=== PATIENT | male | born 1975 | race Caucasian/White ===

== ENCOUNTER 2016-09-13 12:50 | Observation (INO) | payer OTHER ==
[~2016-09-13] VITALS: Ht 182.9 cm; Wt 88.8 kg
[2016-09-13] MEDS: 0.9% Sodium Chloride 1,000 ML IV SCH ×3 (06:00→23:59)
[~2016-09-13 12:50] MED LIST: Methohexital 10 mg/mL 50 mL Inj IV ONE
[2016-09-13 14:20] VITALS: BP 113/78; PULSE 76; RESP 16; O2SAT 96
[2016-09-13] MEDS ORDERED: Polyethylene Glycol (PEG) 17 Gm Powder PO PRN (14:45)
[2016-09-13] MEDS ORDERED: Alum-Mag Hydrox-Simeth 30 mL Suspension PO PRN (14:45)
[2016-09-13] MEDS ORDERED: Ondansetron 2 mg/mL 2 mL Inj IVPUSH PRN ×2 (14:45→17:30)
[2016-09-13 14:48] VITALS: PULSE 82
[2016-09-13 16:08] LABS: BASOPHILS % (AUTO) 0.8 % (0-3); EOSINOPHILS % (AUTO) 1.9 % (0-5); MONOCYTES % (AUTO) 9.4 % (4-12); Mean Corpuscular Volume 81.1 fL (81-100); NEUTROPHILS % (AUTO) 61.9 % (40-74); Platelet Count 224 bil/L (150-400)
[2016-09-13] MEDS: Lactated Ringer's 1,000 ML IV SCH ×2 (16:15→23:59)
[2016-09-13 16:22] VITALS: BP 112/72; PULSE 74; RESP 18; O2SAT 97
[2016-09-13 16:49] LABS: TROPONIN T < 0.010 ug/L (0.0-0.011)
[2016-09-13 17:06] LABS: COLOR,URINE YELLOW (YELLOW)
[2016-09-13] MEDS ORDERED: Methohexital 10 mg/mL 50 mL Inj ONE (17:06)
[2016-09-13 17:07] LABS: APPEARANCE,URINE CLEAR (CLEAR,HAZY); OCCULT BLOOD,URINE NEGATIVE (NEGATIVE); UROBILINOGEN,URINE NORMAL (NORMAL)
[2016-09-13] MEDS ORDERED: 0.9% Sodium Chloride 1,000 ML IV ONE (17:30)
--- NOTE | 2016-09-13 18:06 | PCM.HPMED ---
Subjective Date of Service Sep 13, 2016 Primary Provider: Admitting Physician: Marshal Magana MD Primary Care Physician: Lm Attending Physician: Marshal Magana MD Chief Complaint: Chest pain History of Present Illness: Patient is a 40-year-old male without past medical history who was transferred to [facility] from [facility] due to acute onset of atrial fibrillation. Patient is a healthy gentleman with no past medical history of cardiac problems. Patient states that last night around 7 PM while at work he developed nausea, 2 episodes of profuse diarrhea, heart palpitations, chest pressure, and lightheadedness. He works at [employer] in [employer] so she went to nursing station to be evaluated. The EKG was performed which revealed antral fibrillation. He was sent to [facility] and eventual transfer to [facility]. Patient is a current smoker, smokes about 1-3 cigarettes per week for about 20 years, he has maybe 1-2 beers per month and he denies the use of illicit drugs. He does not exercises on a daily basis. He has a family history of coronary artery disease in his father and grandfather. At the moment patient denies any chest pain, but admits to having mild chest pressure, he denies irregular heart palpitations, diaphoresis, nausea. On admission patient's white blood count was 8.8, hemoglobin 15.7, hematocrit 42.9, platelets 224. Sodium 139, potassium 4.5, chloride 105, carbon dioxide 20 , BUN 15, creatinine 0.91, glucose 100. Troponin less then 0.01, TSH and free T4 within normal limits. Review of Systems: Comprehensive review of systems has been conducted with the patient and found to be negative except what is mentioned in the history of present illness. Allergies Coded Allergies: No Known Allergies (Unverified , 09/13/16) Home Medications Occasionally ibuprofen PMH None Surgical History Appendectomy Back surgery Family History Patient is and lives with the family Social History Hx Alcohol Use: Yes (on occasion) Alcoholic Drinks Per Day: less than one a week Hx Substance Use: No Smoking Status: Light Tobacco Smoker Living Arrangement: with Family Exam Vital Signs Vital Sign - Last Date Time Temp Pulse Resp B/P Pulse Ox O2 Delivery O2 Flow Rate FiO2 09/13/16 16:22 36.9 74 18 112/72 97 Room Air Exam General: Pleasant gentleman in no acute distress, well-developed, well-nourished , appropriately interactive HEENT: Normocephalic, atraumatic. External ears without defect. Anicteric sclerae, moist conjunctivae, and no lid lag. Oropharynx free of erythema and cobble stoning with moist mucosa. Neck: Supple. No lymphadenopathy or thyromegaly. Cardiovascular: Irregularly irregular, with no murmurs, rubs, or gallops appreciated Pulmonary: Clear to auscultation bilaterally with no crackles, wheezes, or rhonchi. Normal respiratory effort with no use of accessory muscles. Abdomen: Bowel tones present. Soft, nontender, nondistended. No hepatosplenomegaly or masses appreciated. Extremities: No clubbing, cyanosis, edema, or lymphadenopathy appreciated. Skin: Normal temperature, turgor, and texture; no rash, ulcers, or subcutaneous nodules appreciated. Neurological: Cranial nerves grossly intact. Psychiatric: Normal mood and affect. Alert and oriented to person, place, and time. Lab and Diagnostics Result Diagram: 09/13/16 1555 09/13/16 1555 Assessment & Plan Tomasz Duke is a 40-year-old male transferred to [facility] from [facility] and admitted for acute onset of atrial fibrillation. 1. New onset Atrial fibrillation, present on admission. Active - Cardiology consulted - Synchronized cardioversion to restore sinus rhythm this afternoon - lovenox for now ,Eliquis on discharge for 1 months - EKG to be performed as an outpatient within 2 weeks of discharge - Complete ECHO as an outpatient - Anticipate discharge tomorrow if patient stable Disposition: obsevation Pain Evaluation: Adequate Pain Control VTE Prophylaxis: Sub-Q Enoxaparin Resuscitation Status: CPR: Attempt Resuscitation Attending Statement The patient was seen and examined together with Dr. Barba on 09/13/16 and I agree with the history, exam and plan as outlined in the note above. Arabella Barba DO Sep 13, 2016 18:06 Marshal Magana MD Sep 13, 2016 21:56
--- NOTE | 2016-09-13 18:34 | NUR ---
Admit to PCC/Cardioversion Pt admitted to PCC at 14:15. Report received from [facility]. Vitals stable, ECG obtained, admit completed, Pt and family oriented to floor and Pt educated on Afib. Pt has HX of MRSA, Dr notified, swab sent. Cardiac: Pt reports chest pressure 09/08, Dr aware. Tele: Afib 70-80. Leading up to ED visit pt reports, "I had diarrhea twice last night at work. On the way to the nurse's office I felt pressure in my chest going up my neck, I felt nausea and tingling all over. I felt my heart beating very hard. At the nurse's office they got an EKG and faxed it to the DR. The Dr was called and he told me to go to the hospital." Pt cardioverted at 15:20 back into SR 80s. Pt reports no more CP. Resting comfortably following procedure. Pt was provided ed materials on Afib, Cardioversion, H/H diet. Resp: Pt denies SOB, SPo2 96% on RA. GI/: Pt denies n/v. Pt reports that he had diarrhea twice last night. Neuro: A&Ox3, ARREDONDO.
[2016-09-13 19:21] VITALS: BP 109/77; PULSE 79; RESP 16; O2SAT 96
[2016-09-13] MEDS: Sodium Chloride LOK Flush 10 mL Syringe IVFLUSH SCH (23:59)
[2016-09-14 00:05] VITALS: BP 126/82; PULSE 83; RESP 16; O2SAT 96
[2016-09-14] MEDS ORDERED: LORazepam 0.5 mg Tablet PO PRN (00:20)
--- NOTE | 2016-09-14 01:17 | NUR ---
Chest Pain: Pt. complaining of sudden 3/10 chest pressure at 0000 which radiates up neck with deep breathing. Pt. diaphoretic, denies nausea, denies anxiety. VSS. STAT EKG performed indicating sinus rhythm, no ectopy observed. Physician notified of findings, orders received for PRN Morphine. 1mg IV Morphine administered, very shortly after morphine administration, pt. states that chest pressure is already starting to improve. 30 minutes after morphine administration, pt. rates chest pressure at 2/10 and refuses further medication at this time. Will continue to monitor.
[2016-09-14 03:13] LABS: Mean Corpuscular Hemoglobin 29.1 pg (27.0-35.0); Mean Corpuscular Volume 80.2 fL (81-100)
[2016-09-14 03:50] VITALS: BP 108/68; PULSE 75; RESP 18; O2SAT 97
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
[2016-09-14 06:04] VITALS: PULSE 80
[2016-09-14 07:28] VITALS: BP 106/68; PULSE 77; RESP 16; O2SAT 93
--- NOTE | 2016-09-14 07:57 | OP ---
[address] [address] OPERATIVE REPORT PATIENT: BETTIE CARRILLO : 1975 MR#: [id number] ADMIT: 09/13/2016 JOB ID: [id number] DATE OF SURGERY: 09/13/2016 SURGEON: Lasha Ocasio MD, [facility] PREOPERATIVE DIAGNOSIS(ES): Atrial fibrillation. POSTOPERATIVE DIAGNOSIS(ES): Atrial fibrillation successfully cardioverted to sinus rhythm. PROCEDURE PERFORMED: Direct current synchronized countershock cardioversion of atrial fibrillation to sinus rhythm. INDICATIONS: The patient is a 40-year-old male with new onset atrial fibrillation within the last 18 hours. He has been symptomatic. He wishes to proceed with cardioversion to restore sinus rhythm. TECHNIQUE: After informed consent was obtained, and in the n.p.o. state, at that time, the patient was premedicated with Versed 1 mg IV followed by Brevital 30 mg IV push which produced fairly prompt and excellent anesthesia with maintenance of spontaneous respirations. A single 150 joule direct current synchronized biphasic countershock was applied via anterior and posterior patches with immediate conversion to sinus rhythm. The patient tolerated the procedure well. There were no complications. FINDINGS: 1. Successful cardioversion using a 150 joule biphasic shock. 2. Excellent anesthesia using Versed 1 mg followed by Brevital 30 mg IV. 3. Post cardioversion rhythm appears to be sinus rhythm at a rate of around 65-70 BPM. DISCUSSION AND RECOMMENDATION: Patient should be observed overnight. The EKG will be obtained in the morning. He can be discharged at that point, on Eliquis for 1 month. He should have an outpatient echocardiogram sometime in the next month and should follow up either in my office or with his primary care provider in 1-2 weeks with an ECG. He is to follow up with me if he has any recurrent atrial fibrillation or abnormality on his echocardiogram.
[2016-09-14] MEDS: Sodium Chloride LOK Flush 10 mL Syringe IVFLUSH SCH (08:30)
--- NOTE | 2016-09-14 09:08 | PCM.DIMED ---
Discharge Instructions Date of Service Sep 14, 2016 Dates of Hospitalization Sep 13, 2016 at 14:32 Discharge Diagnosis Discharge Diagnosis New onset Afib status post cardioversion and in sinus rythm now Diet No restrictions Activity No restrictions Call your provider Fever or Chills, Shortness of breath, Bleeding, Chest pain, Vomitting, Excessive diarrhea, Weakness (unilateral) Patient Instructions You were hospitalized due to new-onset atrial fibrillation. You underwent successful cardioversion. Please continue eliquis( blood thinner ) for 1 month. Please continue aspirin 81 mg by mouth daily after 1 month. Please follow-up with PCP in 1-2 weeks and get EKG and echocardiogram. Follow-up plan Follow-up with PCP in 1-2 weeks. Follow-up with PCP in: 1 week Marshal Magana MD Sep 14, 2016 09:08
[2016-09-14] MEDS ORDERED: APIX5TAB PO (09:10)
--- NOTE | 2016-09-14 10:03 | NUR ---
Social Work- Brief Note/ Readiness for Discharge Data: EMR reviewed. Pt is a 40 year old male admitted 09/13/16 for AFIB per H&P. Pt is a transfer from [facility]. Pt's insurance is [facility]. [facility] Pt resides at home with his where he remains independent at base. Pt has no listed DPOA. Pt to receive Echo as an outpatient. Pt to discharge home with via POV. No anticipated discharge needs. SW will continue to follow if needs arise. Assessment: Pt who is independent at base. Plan: Pt to discharge home with via POV. No anticipated discharge needs. SW will continue to follow if needs arise. JANESSA Sandra
--- NOTE | 2016-09-14 10:20 | NUR ---
Discharge Pt discharged home today at 10:20. Pt off unit via ambulation with all of his belongings in the company of his father and the nurse to a private vehicle. Pt sent home with prescription, follow up instructions, and education materials on meds, HH diet, and cardioversion. Pt given a note for work. Pt voices understanding of instructions.
--- NOTE | 2016-09-14 11:01 | PCM.DC.MED ---
Discharge Summary Date of Service Sep 14, 2016 Dates of Hospitalization Date of Hospital Admission Sep 13, 2016 at 14:32 Date of Discharge: Sep 14, 2016 Providers: Admitting Physician: Marshal Magana MD [facility]ending Physician: Marshal Magana MD Diagnosis at Time of Discharge Diagnosis at Time of Discharge New onset Afib status post cardioversion and in sinus rythm now Consultations cardiology Dr Ocasio Procedures Invasive Procedures cardioversion DATE OF SURGERY: 09/13/2016 SURGEON: Lasha Ocasio MD, [facility] PREOPERATIVE DIAGNOSIS(ES): Atrial fibrillation. POSTOPERATIVE DIAGNOSIS(ES): Atrial fibrillation successfully cardioverted to sinus rhythm. PROCEDURE PERFORMED: Direct current synchronized countershock cardioversion of atrial fibrillation to sinus rhythm. INDICATIONS: The patient is a 40-year-old male with new onset atrial fibrillation within the last 18 hours. He has been symptomatic. He wishes to proceed with cardioversion to restore sinus rhythm. TECHNIQUE: After informed consent was obtained, and in the n.p.o. state, at that time, the patient was premedicated with Versed 1 mg IV followed by Brevital 30 mg IV push which produced fairly prompt and excellent anesthesia with maintenance of spontaneous respirations. A single 150 joule direct current synchronized biphasic countershock was applied via anterior and posterior patches with immediate conversion to sinus rhythm. The patient tolerated the procedure well. There were no complications. FINDINGS: 1. Successful cardioversion using a 150 joule biphasic shock. 2. Excellent anesthesia using Versed 1 mg followed by Brevital 30 mg IV. 3. Post cardioversion rhythm appears to be sinus rhythm at a rate of around 65-70 BPM. DISCUSSION AND RECOMMENDATION: Patient should be observed overnight. The EKG will be obtained in the morning. He can be discharged at that point, on Eliquis for 1 month. He should have an outpatient echocardiogram sometime in the next month and should follow up either in my office or with his primary care provider in 1-2 weeks with an ECG. He is to follow up with me if he has any recurrent atrial fibrillation or abnormality on his echocardiogram. Lasha Ocasio MD 09/13/16 [id number] Brief History per HPI Patient is a 40-year-old male without past medical history who was transferred to [facility] from [facility] due to acute onset of atrial fibrillation. Patient is a healthy gentleman with no past medical history of cardiac problems. Patient states that last night around 7 PM while at work he developed nausea, 2 episodes of profuse diarrhea, heart palpitations, chest pressure, and lightheadedness. He works at [employer] in [employer] so she went to nursing station to be evaluated. The EKG was performed which revealed antral fibrillation. He was sent to [facility] and eventual transfer to [facility]. Patient is a current smoker, smokes about 1-3 cigarettes per week for about 20 years, he has maybe 1-2 beers per month and he denies the use of illicit drugs. He does not exercises on a daily basis. He has a family history of coronary artery disease in his father and grandfather. At the moment patient denies any chest pain, but admits to having mild chest pressure, he denies irregular heart palpitations, diaphoresis, nausea. On admission patient's white blood count was 8.8, hemoglobin 15.7, hematocrit 42.9, platelets 224. Sodium 139, potassium 4.5, chloride 105, carbon dioxide 20 , BUN 15, creatinine 0.91, glucose 100. Troponin less then 0.01, TSH and free T4 within normal limits. Hospital Course Tomasz Duke is a 40-year-old male transferred to [facility] from [facility] and admitted for acute onset of atrial fibrillation. 1. New onset Atrial fibrillation, present on admission. Active - Cardiology Dr Chacon did successful cardioversion and patient remains in sinus rhythm - s/p Synchronized cardioversion - Therapeutic lovenox used,Eliquis on discharge for 1 months - EKG and echocardiogram to be performed as an outpatient within 2 weeks of discharge Disposition: Discharged home. Condition on discharge stable Exam Vital Signs (Last) Date Time Temp Pulse Resp B/P Pulse Ox O2 Delivery O2 Flow Rate FiO2 09/14/16 07:28 36.3 77 16 106/68 93 Room Air Exam General: Pleasant gentleman in no acute distress, well-developed, well-nourished , appropriately interactive HEENT: Normocephalic, atraumatic. External ears without defect. Anicteric sclerae, moist conjunctivae, and no lid lag. Oropharynx free of erythema and cobble stoning with moist mucosa. Neck: Supple. No lymphadenopathy or thyromegaly. Cardiovascular: regular in NSR, with no murmurs, rubs, or gallops appreciated Pulmonary: Clear to auscultation bilaterally with no crackles, wheezes, or rhonchi. Normal respiratory effort with no use of accessory muscles. Abdomen: Bowel tones present. Soft, nontender, nondistended. No hepatosplenomegaly or masses appreciated. Extremities: No clubbing, cyanosis, edema, or lymphadenopathy appreciated. Skin: Normal temperature, turgor, and texture; no rash, ulcers, or subcutaneous nodules appreciated. Neurological: Cranial nerves grossly intact. Psychiatric: Normal mood and affect. Alert and oriented to person, place, and time Test 09/13/16 15:55 09/13/16 16:55 09/14/16 02:50 Neutrophils (%) (Auto) 61.9% (40-74) Lymphocytes (%) (Auto) 25.2% (14-46) Monocytes (%) (Auto) 9.4% (4-12) Eosinophils (%) (Auto) 1.9% (0-5) Basophils (%) (Auto) 0.8% (0-3) Magnesium Level 2.0mg/dL (1.6-2.6) Total Bilirubin 0.4mg/dL (0.0-1.2) Aspartate Amino Transf (AST/SGOT) 18U/L (0-50) Alanine Aminotransferase (ALT/SGPT) 25U/L (0-44) Alkaline Phosphatase 52U/L (25-150) Troponin T < 0.010ug/L (0.0-0.011) Total Protein 7.3g/dL (6.4-8.4) Albumin 4.2g/dL (3.4-5.0) Thyroid Stimulating Hormone (TSH) 2.180uIU/mL (0.450-4.500) Free Thyroxine 1.23ng/dL (0.82-1.77) Urine Color Yellow (YELLOW) Urine Appearance Clear (CLEAR,HAZY) Urine pH 5.0 (5.0-8.0) Urine Specific [place] 1.030 (1.003-1.035) Urine Protein Negativemg/dL (NEG,TRACE) Urine Glucose (UA) Negativemg/dL (NEGATIVE) Urine Ketones Negativemg/dL (NEGATIVE) Urine Occult Blood Negative (NEGATIVE) Urine Nitrite Negative (NEGATIVE) Urine Bilirubin Negative (NEGATIVE) Urine Urobilinogen Normalmg/dL (NORMAL) Urine Leukocyte Esterase Negative (NEGATIVE) Urine RBC 0-2/hpf (0-2) Urine WBC 0-5/hpf (0-5) Urine Epithelial Cells Occasional/hpf (NONE-MOD) Urine Crystals None seen (NONE SEEN) Urine Bacteria None/hpf (NONE-FEW) Urine Hyaline Casts None/lpf (NONE) Urine Granular Casts None seen (NONE SEEN) Urine Waxy Casts None seen (NONE SEEN) Urine Red Blood Cell Casts None seen (NONE SEEN) Urine White Blood Cell Casts None seen (NONE SEEN) Urine Mucus None seen (None Seen) Urine Trichomonas None seen (NONE SEEN) Urine Yeast None (NONE SEEN) Urinalysis Comment None Urine Culture Reflexed Not indicated White Blood Count 7.4th/mm3 (3.8-10.1) Red Blood Count 5.19mil/mm3 (4.40-5.80) Hemoglobin 15.1g/dL (13.8-17.2) Hematocrit 41.6% (41.0-50.0) Mean Corpuscular Volume 80.2fL (81-100) Mean Corpuscular Hemoglobin 29.1pg (27.0-35.0) Mean Corpuscular Hemoglobin Concent 36.3% (32.0-37.0) Red Cell Distribution Width 13.0% (12.3-15.4) Platelet Count 231bil/L (150-400) Sodium Level 138mEq/L (134-144) Potassium Level 4.4mEq/L (3.5-5.2) Chloride Level 102mEq/L (97-108) Carbon Dioxide Level 22mmol/L (18-29) Blood Urea Nitrogen 14mg/dL (6-24) Creatinine 0.94mg/dL (0.76-1.27) Estimat Glomerular Filtration Rate 94mL/min (>59) Glucose Level 134mg/dL (60-99) Calcium Level 9.1mg/dL (8.5-10.1) Discharge Medications Discharge Medications Apixaban (Eliquis) 5 Mg Tablet 5 MG PO BID Prescribed by: MARSHAL MAGANA MD Followup Plan Disposition: Home Follow-up plan Follow-up with PCP in 1-2 weeks. Discharge Diet: No restrictions Discharge Activity: No restrictions Patient Instructions You were hospitalized due to new-onset atrial fibrillation. You underwent successful cardioversion. Please continue eliquis( blood thinner ) for 1 month. Please continue aspirin 81 mg by mouth daily after 1 month. Please follow-up with PCP in 1-2 weeks and get EKG and echocardiogram. Follow-up with PCP in: 1 week Time spent 25 minutes Marshal Magana MD Sep 14, 2016 11:01
--- OUTSIDE RECORDS SUMMARY | 2016-09-16 09:38 | XMS | Continuity of Care Document ---
Author Author [facility] Address Unknown Phone Unavailable Care Team Providers Care Radio Television Announcer Name Role Phone Unavailable Unavailable Insurance Providers Payer Name Policy Number Subscriber Name Relationship [facility] [id number] BETTIE CARRILLO Self Advance Directives Directive Response Recorded Date/Time Code Status Full code 09/13/16 4:46am Do You Have an Advanced Directive for Health Care? N 09/13/16 5:25am If No:+ Pt. declined information 09/13/16 5:25am Chief Complaint and Reason for Visit Reason for Visit ACUTE CHEST PAIN Problems Active Medical Problems Problem Onset Date Recorded Date Status Chest pain Unknown 09/13/16 Active Medications No medication information available. Social History Problem Response Recorded Date Street drug use? N 09/13/16 Alcohol Use? N 09/13/16 Support sources:+ Family, local 09/13/16 Able to participate in own care? Y 09/13/16 Have help at home after discharge? Y 09/13/16 Prior to this admission, the patient lived:+ WITH FAMILY 09/13/16 Query Response Start Date Stop Date Smoking status:+ Former smoker Hospital Discharge Instructions No hospital discharge instructions. Plan of Care Discharge Date 09/13/16 Disposition Acute [facility] (02) Instructions/Education Provided [facility] ED Instruction Prescriptions See Medications Section Functional Status No functional status results. Allergies, Adverse Reactions, Alerts No known allergies. Immunizations Name Date Given Type Influenza? (Seasonal)+ Yes Historical Date:* 03/2017 Historical Lst Tetanus:* Historical Vital Signs Vital Reading Collection Date/Time Result Blood Pressure 09/13/16 11:06am 115/67 Patient Temperature 09/13/16 7:41am 98 Temperature Source 09/13/16 5:23am TEMPORAL Respiratory Rate 09/13/16 7:41am 18 Pulse Rate 09/13/16 11:06am 92 Bedside Pulse Oximetry 09/13/16 8:00am 97 Height 09/13/16 5:34am 6 ft 0 in 182.88 cm Weight 09/13/16 5:34am 197 lb 89.5 kg Body Mass Index 09/13/16 5:34am 26.8 kg/m2 Results Laboratory Results Test Name Result Units Flags Reference Collection Date/Time Result Date/ Time Comments Troponin I < 0.012 ng/mL 0.01-0.034 09/13/16 8:45am 09/13/16 9:30am Reference Ranges: Upper Reference Limit 0.034 ng/mL AMI Diagnostic Cutoff 0.120 ng/mL Total Creatine Kinase 54 U/L L 55-170 09/13/16 8:45am 09/13/16 9:30am Alkaline Phosphatase 47 U/L 38-126 09/13/16 8:45am 09/13/16 9:30am Total Bilirubin 0.6 mg/dL 0.2-1.3 09/13/16 8:45am 09/13/16 9:30am Blood Urea Nitrogen 13.0 mg/dL 9-20 09/13/16 8:45am 09/13/16 9:30am Creatinine 0.90 mg/dL 0.66-1.25 09/13/16 8:45am 09/13/16 9:30am Estimated GFR (MDRD) >60.0 mL/min >60 09/13/16 8:45am 09/13/16 9:30am ESTIMATED GFR: TO ESTIMATE THE GLOMERULAR FILTRATION RATE FOR - AMERICANS, MULTIPLY THE RESULTS PROVIDED BY 1.21. ESTIMATED GFR (EGFR) VALUES <60 ml/min/1.73m2 ARE INDICATIVE OF CHRONIC KIDNEY DISEASE. BUN/Creatinine Ratio 14.4 5.8-27.8 09/13/16 8:45am 09/13/16 9:30am Calcium Level 9.2 mg/dL 8.4-10.2 09/13/16 8:45am 09/13/16 9:30am Glucose Level 145 mg/dL H 79-115 09/13/16 8:45am 09/13/16 9:30am Total Protein 7.2 g/dL 6.3-8.2 09/13/16 8:45am 09/13/16 9:30am Albumin 4.2 g/dL 3.5-5.0 09/13/16 8:45am 09/13/16 9:30am Globulin 3.0 g/dL 1.7-4.1 09/13/16 8:45am 09/13/16 9:30am Albumin/Globulin Ratio 1.4 1-2.8 09/13/16 8:45am 09/13/16 9:30am Aspartate Amino Transf (AST/SGOT) 23 IU/L 17-59 09/13/16 8:45am 9:30am Alanine Aminotransferase (ALT/SGPT) 30 IU/L 21-72 09/13/16 8:45am 09/13 9:30am Sodium Level 141 mmol/L 137-145 09/13/16 8:45am 09/13/16 9:30am Potassium Level 3.9 mmol/L 3.5-5.1 09/13/16 8:45am 09/13/16 9:30am Chloride Level 107.0 mmol/L 98-107 09/13/16 8:45am 09/13/16 9:30am Carbon Dioxide Level 23.0 mmol/L 22-30 09/13/16 8:45am 09/13/16 9:30am Amylase Level 80 U/L 30-110 09/13/16 0:49am 09/13/16 1:14am Magnesium Level 2.0 mg/dL 1.6-2.3 09/13/16 0:49am 09/13/16 1:14am White Blood Count 9.4 X10^3/uL 4.5-11 09/13/16 0:49am 09/13/16 1:06am Red Blood Count 5.44 X10^6/uL 4.5-5.9 09/13/16 0:49am 09/13/16 1:06am Hemoglobin 15.8 G/DL 13.5-17.5 09/13/16 0:49am 09/13/16 1:06am Hematocrit 44.6 % 41-53 09/13/16 0:49am 09/13/16 1:06am Mean Corpuscular Volume 82.0 FL 80-100 09/13/16 0:49am 09/13/16 1:06am Mean Corpuscular Hemoglobin 29.1 PG 26-34 09/13/16 0:49am 09/13/16 1: 06am Mean Corpuscular Hemoglobin Concent 35.5 % 31-37 09/13/16 0:49am 1:06am Red Cell Distribution Width 13.2 % 11.6-14.8 09/13/16 0:49am 09/13/16 1 :06am Platelet Count 217 X10^3/uL 150-400 09/13/16 0:49am 09/13/16 1:06am Neutrophils % 58.4 % 50-75 09/13/16 0:49am 09/13/16 1:06am Absolute Neutrophil 5500 /uL [id number] 09/13/16 0:49am 09/13/16 1:06am Lymphocytes % 29.0 % 25-40 09/13/16 0:49am 09/13/16 1:06am Monocytes % 9.3 % 3-14 09/13/16 0:49am 09/13/16 1:06am Eosinophils % 2.0 % 2-4 09/13/16 0:49am 09/13/16 1:06am Basophils % 1.3 % 0-2 09/13/16 0:49am 09/13/16 1:06am Lipase 126 U/L 23-300 09/13/16 0:49am 09/13/16 1:14am Prothrombin Time 11.1 SECONDS 10.0-12.7 09/13/16 0:49am 09/13/16 1: 12am International Ratio (Anticoag Ther) 1.0 0.9-1.3 09/13/16 0:49am 09/13 1:12am INR THERAPUTIC RANGES: PREVENTION AND TREATMENT OF THROMBOEMBOLISM ASSOCIATED WITH: AF, PE, VT, POST-NC, BIPROSTHETIC HEART VALVES 2.0-3.0 MECHANICAL HEART VALVES 2.5-3.5 Activated Partial Thromboplast Time 32 26.4-36.2 09/13/16 0:49am 1:12am Adjunctive to Coronary Thrombosis Heparin (0.1 - 0.3 UI/mL)=46.5 - 63.2 seconds Heparin (0.3 - 0.7 UI/mL)=63.2 - 102.2 seconds. Procedures No Known History of Procedures. Encounters Encounter Location Arrival/Admit Date Discharge/Depart Date Attending Provider Discharged [facility] 09/13/16 0:34am 09/13/16 1:20pm Rickey Webb MD Encounter Diagnosis Onset Date Chest pain
== END 2016-09-14 10:19 | disposition home or self-care (01) ==
LOC: PCC 14:32 → INTOOBSV 14:32
PROVIDERS: ADMIT Internal Medicine; ATTEND Internal Medicine
DX: I48.91 Unspecified atrial fibrillation (principal); R07.89 Other chest pain; G40.909 Epilepsy, unspecified, not intractable, without status epilepticus; F17.210 Nicotine dependence, cigarettes, uncomplicated; Z82.49 Family history of ischemic heart disease and other diseases of the circulatory system; Z79.899 Other long term (current) drug therapy
CPT/HCPCS: 36415; 80048; 80053; 81000; 83735; 84439; 84443; 84484; 85025; 85027; 92960; 93005; G0378; J1650; J2270; J7120